=== PATIENT | female | born 1965 | race Two or more races ===

== ENCOUNTER 2024-01-22 21:27 | Emergency (ER) | payer OTHER ==
[~2024-01-22] VITALS: Ht 167.6 cm; Wt 72.6 kg
[2024-01-22 21:33] VITALS: TEMP 98
[2024-01-22] MEDS ORDERED: CYCLOBENZAPRINE 10 MG TABLET ONE (22:56)
[2024-01-22] MEDS ORDERED: KETOROLAC TROMETHAMINE 15 MG/ML VIAL ONE (22:56)
[2024-01-22] MEDS: CYCLOBENZAPRINE 10 MG TABLET PO ONE (23:01)
[2024-01-22] MEDS: KETOROLAC TROMETHAMINE 15 MG/ML VIAL IM ONE (23:01)
[2024-01-23] MEDS ORDERED: IBUP-1955 PO (00:52)
[2024-01-23] MEDS ORDERED: HYDR-4303 PO (00:52)
[2024-01-23] MEDS ORDERED: ACET-2605 PO (00:52)
[2024-01-23 01:33] VITALS: BP 134/89; O2SAT 98
== END 2024-01-23 01:34 | disposition home or self-care (01) ==
LOC: ER 21:29
DX: M25.512 Pain in left shoulder (principal); X58.XXXA Exposure to other specified factors, initial encounter; Y93.89 Activity, other specified; Y92.89 Other specified places as the place of occurrence of the external cause; Y99.8 Other external cause status; E78.5 Hyperlipidemia, unspecified
CPT/HCPCS: 29105; 73030; 96372; 99283; J1885